=== PATIENT | female | born 1985 | race American Indian/Alaskan Native ===

== ENCOUNTER 2018-10-11 11:29 | Outpatient (CLI) | payer OTHER ==
--- NOTE | 2018-10-11 15:22 | Mammography Report ---
BILATERAL DIGITAL SCREENING MAMMOGRAM :10/11/18 CLINICAL: 33-year-old for baseline screening. FINDINGS: The breasts are heterogeneously dense, which may obscure small masses.No mass, architectural distortion or suspicious calcifications. IMPRESSION: No mammographic evidence of malignancy. BI-RADS CATEGORY: 1 -- Negative RECOMMENDATION: Routine mammographic screening based on ACS guidelines. ACR BI-RADS MAMMOGRAPHIC CODES: 0 = Needs additional imaging evaluation; 1 = Negative; 2 = Benign; 3 = Probably benign; 4 = Suspicious; 5 = Malignant; 6 = Known biopsy-proven malignancy COMMENT: 1. Dense breast tissue, i.e., adenosis, fibrocystic changes, etc., may obscure an underlying neoplasm. 2. Approximately 10% of cancers are not detected with mammography. 3. A negative mammography report should not delay biopsy if a clinically suspicious mass is present.
== END 2018-10-11 11:30 | disposition home or self-care (01) ==
LOC: SPVWC 11:29
PROVIDERS: ATTEND Plastic Surgery
DX: Z12.31 Encounter for screening mammogram for malignant neoplasm of breast (principal)
CPT/HCPCS: 77067

== ENCOUNTER 2019-01-06 11:19 | Outpatient (CLI) | payer OTHER ==
--- NOTE | 2019-01-06 14:01 | Mammography Report ---
LEFT DIGITAL DIAGNOSTIC MAMMOGRAM WITH CAD and LEFT BREAST ULTRASOUND INDICATION: Swelling and hardness of the left breast approximately 2 months after reduction mammoplas ty. TECHNIQUE: Digital left mammographic imaging was performed. This examination was interpreted with t he benefit of Computer-Aided Detection (CAD) analysis. COMPARISON: 10/11/2018 FINDINGS: Breast Density: The breasts are heterogeneously dense, which may obscure small masses. There is no evidence of dominant mass, suspicious calcifications or architectural distortion in the l eft breast. An irregular upper summation density on the MLO view. Ultrasound Findings: Complete sonographic evlauation of all 4 quadrants and retroareolar region was p erformed. An irregular hypoechoic mass at 4:00 7 cm from the nipple measures approximately 4.6 x 1. 8 x 4.5 cm. No other mass. No skin thickening. I examined the breast myself and observed a hardness to the lower outer breast but no signs of inflam mation. According to the patient, she is receiving manual therapy to the breast and according to her the breast is getting smaller. She describes no pain and no discharge. IMPRESSION: A probably benign 4.6 x 1.8 x 4.5 cm postop hematoma/seroma of the left breast at 4:00 7 cm from the nipple. Recommend conservative management with a follow-up left breast ultrasound in 3 mo nths to reassess the size and character of the mass. BI-RADS Category 3: Probably Benign. A "normal" or negative report should not discourage follow up or biopsy of a clinically significant f inding. A written summary of these findings will be mailed to the patient. The patient will be entered into a mammography reporting system which will generate a reminder letter for the patient's next appointmen t at the appropriate interval. FURTHER INFORMATION: According to the [employer], yearly mammograms are recommend ed starting at age 40 and continuing as long as a woman is in good health. Breast MRI is recommended for women with an approximately 20-25% or greater lifetime risk of breast cancer, including women wi th a strong family history of breast or ovarian cancer and women who have been treated for Hodgkin's disease. Signer Name: Marbin Barriga MD Signed: 01/06/2019 1:57 PM Workstation Name: [id number]
== END 2019-01-06 11:20 | disposition home or self-care (01) ==
LOC: SPVWC 11:19
PROVIDERS: ATTEND Internal Medicine
DX: N64.59 Other signs and symptoms in breast (principal)